=== PATIENT | male | born 1990 | race Two or more races ===

== ENCOUNTER 2024-11-05 10:24 | Emergency (ER) | payer MEDICAID ==
[~2024-11-05] VITALS: Ht 170.2 cm; Wt 122.9 kg
[2024-11-05] MEDS ORDERED: PANTOPRAZOLE 40 MG TABLET.DR PO ONE (11:40)
[2024-11-05] MEDS ORDERED: MAG HYDROX/AL HYDROX/SIMETH 30 ML UDC ONE (11:40)
[2024-11-05] MEDS: MAG HYDROX/AL HYDROX/SIMETH 30 ML UDC PO ONE (11:46)
[2024-11-05] MEDS: PANTOPRAZOLE 40 MG TABLET.DR PO ONE (11:47)
[2024-11-05 11:52] LABS: PLATELET COUNT (AUTO) 396 K/uL (150-450); RED BLOOD CELL COUNT(AUTO) 4.61 MIL/uL (4.5-6.0); RED CELL DISTRIBUTION WIDTH 23.2 % (11.5-15.0); WHITE BLOOD COUNT (AUTO) 8.7 K/uL (4.3-11.0)
[2024-11-05 11:56] LABS: CALCIUM, SERUM 8.8 mg/dL (8.5-10.1); CREATININE 0.8 mg/dL (0.6-1.3); SODIUM SERUM 138.0 mmol/L (136-145); UREA NITROGEN, BLOOD 8.0 mg/dL (7-18)
[2024-11-05 12:00] LABS: ASPARTATE AMINOTRANSFERASE 180.0 U/L (15-37); TOTAL PROTEIN, SERUM 7.4 g/dL (6.4-8.2)
[2024-11-05 12:06] LABS: APPEARANCE,URINE CLEAR (CLEAR); BLOOD, URINE NEGATIVE Ery/uL (NEGATIVE); LEUKOCYTE ESTERASE ,URINE NEGATIVE (NEGATIVE); NITRITE, URINE NEGATIVE (NEGATIVE); UGLUCOSE NEGATIVE (NEGATIVE)
[2024-11-05 12:21] LABS: ADD URINE CULTURE NO; SQUAMOUS EPITHELIAL CELL,UR 0-2 /HPF (None Seen)
[2024-11-05] MEDS ORDERED: FERR325T23 PO (14:23)
[2024-11-05] MEDS ORDERED: PANT40TA2 PO (14:23)
[2024-11-05 14:46] VITALS: BP 121/79; TEMP 98.3; O2SAT 99
== END 2024-11-05 14:47 | disposition home or self-care (01) ==
LOC: ER 10:31
DX: D64.9 Anemia, unspecified (principal); R10.13 Epigastric pain
CPT/HCPCS: 36415; 80048-TC; 80076-TC; 81001; 83690-TC; 85025-TC